=== PATIENT | female | born 1945 | race Caucasian/White ===

== ENCOUNTER → 2017-09-30 | Outpatient (CLI) | payer MEDICARE ==
--- NOTE | 2017-09-30 12:27 | PCVCIMAG ---
APPROVED REPORT Patient Location: Out-Patient Indications Bruit Stenosis Doppler Spectral Velocity Analysis PSV / EDVPSV / EDV ECA (R) 173 / 17 cm/sECA (L) 347 / 40 cm/s dICA (R) 109 / 34 cm/sdICA (L) 64 / 20 cm/s Shekhar (R) 161 / 49 cm/smICA (L) 184 / 65 cm/s pICA (R) 201 / 63 cm/spICA (L) 198 / 69 cm/s Bulb (R) 100 / 21 cm/sBulb (L) 145 / 31 cm/s dCCA (R) 90 / 21 cm/sdCCA (L) 104 / 24 cm/s mCCA (R) 108 / 17 cm/smCCA (L) 99 / 27 cm/s Vert (R) 55 / 9 cm/sVert (L) 72 / 25 cm/s ICA/CCA 2.23 ICA/CCA 1.90 Findings The right carotid bulb has moderate calcified plaque. The right proximal internal carotid artery shows 60-70% stenosis. The right common carotid artery shows no significant stenosis. The right external carotid artery shows >50% stenosis. The left carotid bulb has moderately severe calcified plaque. The left proximal internal carotid artery shows 60-70% stenosis. The left common carotid artery shows no significant stenosis. The left external carotid artery shows >90% stenosis. Conclusion 1. Right internal carotid artery stenosis (60-70%). 2. Left internal carotid artery stenosis (60-70%) 3. Antegrade vertebral flow
== END | disposition home or self-care (01) ==
LOC: PCVCIMAG 10:41
PROVIDERS: ATTEND Internal Medicine Cardiovascular Disease
DX: I25.10 Atherosclerotic heart disease of native coronary artery without angina pectoris (principal); I77.9 Disorder of arteries and arterioles, unspecified; I63.9 Cerebral infarction, unspecified; E78.00 Pure hypercholesterolemia, unspecified; I10 Essential (primary) hypertension; R09.89 Other specified symptoms and signs involving the circulatory and respiratory systems; I65.23 Occlusion and stenosis of bilateral carotid arteries; R94.31 Abnormal electrocardiogram [ECG] [EKG]; Z79.82 Long term (current) use of aspirin
CPT/HCPCS: 80061; 93005; 93880; G0463

== ENCOUNTER → 2018-05-19 | Outpatient (CLI) | payer MEDICARE | END | disposition home or self-care (01) | LOC: PCVCCLINIC 14:22 | DX: I25.10 Atherosclerotic heart disease of native coronary artery without angina pectoris (principal); I77.9 Disorder of arteries and arterioles, unspecified; I10 Essential (primary) hypertension; E78.00 Pure hypercholesterolemia, unspecified; I35.8 Other nonrheumatic aortic valve disorders; I63.9 Cerebral infarction, unspecified; Z88.8 Allergy status to other drugs, medicaments and biological substances; Z79.82 Long term (current) use of aspirin; Z79.899 Other long term (current) drug therapy | CPT/HCPCS: 80061; 85610; 93005 ==

== ENCOUNTER → 2018-09-22 | Outpatient (CLI) | payer MEDICARE ==
--- NOTE | 2018-09-22 16:36 | PCVCIMAG ---
APPROVED REPORT Study performed: 09/22/2018 15:10:51 Exam: Stress Echocardiogram Indication: CAD, moderate carotid stenosis, HTN Patient Location: Echo lab Stress Nurse: Marielena Vega RN Status: routine Ht: 5 ft 3 in HR: 75 bpm BP: 126/70 mmHg Rhythm: NSR Procedure The patient underwent an Exercise Stress Test using the Lawrence Protocol. Blood pressure, heart rate, and EKG were monitored. An Echocardiogram was performed by cryptologic technician technical in four stages in quad fashion. At peak stress, four selected images were obtained and placed side by side with resting images for comparison. Stress Test Details Stress Test: Exercise stress testing was performed using a Lawrence protocol. HR Resting HR: 75 bpmMax Heart Rate (APMHR): 148 bpm Max HR Achieved: 155 bpmTarget HR (85% APMHR): 125 bpm % of APMHR: 104 Recovery HR: 108 bpm HR response to stress: Normal HR response to stress BP Resting BP: 126/70 mmHg Max BP: 156/78 mmHg Recovery BP: 146/76 mmHg BP response to stress: Normal blood pressure response to stress. ECG Resting ECG: Sinus Rhythm Stress ECG: Sinus Rhythm ST Change: equivocal upsloping ST depression Arrhythmia: None Recovery ECG: Sinus Rhythm Recovery ST Change: Normal Recovery Arrhythmia: None Clinical Reason for Termination: Maximal effort, Dyspnea Stress Symptoms: Dyspnea Exercise duration: 6 min 31 sec Highest Stage Achieved: Stage 3: 3.4 mph at 14% grade. Exercise capacity: 8.5 METs Overall Exercise Capacity for Age: Normal Scale: Sedentary Angina Score: None Pre-Stress Echo The resting Echocardiogram showed normal left ventricular contractility with an estimated Ejection Fraction of about 55%. Normal wall motion in all segments on baseline images. Post-Stress Echo The stress Echocardiogram showed normal left ventricular contractility with an estimated Ejection Fraction of about 65%. Normal augmentation of wall motion in all segments on post stress images. Clinical No clinical or ECG evidence for ischemia. Conclusion Clinical Response: Non-ischemic Exercise Capacity: Average Stress ECG Response: Non-ischemic Stress Echo Images: Non-ischemic The left ventricle is normal in size and wall thickness in both the rest and stress images. Other Information Study Quality: Adequate <Conclusion> The left ventricle is normal in size and wall thickness in both the rest and stress images.
== END | disposition home or self-care (01) ==
LOC: PCVCIMAG 14:25
PROVIDERS: ATTEND Internal Medicine Cardiovascular Disease
DX: I65.23 Occlusion and stenosis of bilateral carotid arteries (principal); R09.89 Other specified symptoms and signs involving the circulatory and respiratory systems; I10 Essential (primary) hypertension; I25.10 Atherosclerotic heart disease of native coronary artery without angina pectoris; E78.5 Hyperlipidemia, unspecified
CPT/HCPCS: 93325; 93351; 93880

== ENCOUNTER → 2019-06-16 | Outpatient (CLI) | payer MEDICARE | END | disposition home or self-care (01) | LOC: PCVCCLINIC 10:15 | PROVIDERS: ATTEND Internal Medicine Cardiovascular Disease | DX: I25.10 Atherosclerotic heart disease of native coronary artery without angina pectoris (principal); E78.5 Hyperlipidemia, unspecified; I65.23 Occlusion and stenosis of bilateral carotid arteries; I63.9 Cerebral infarction, unspecified; R09.89 Other specified symptoms and signs involving the circulatory and respiratory systems; I35.8 Other nonrheumatic aortic valve disorders; R01.1 Cardiac murmur, unspecified; Z79.82 Long term (current) use of aspirin | CPT/HCPCS: 36415; 80061; 93005; G0463 ==